=== PATIENT | male | born 1945 | race Caucasian/White ===

== ENCOUNTER → 2025-08-23 | Day surgery (SDC) | payer MEDICARE ==
[~2025-08-23] MED LIST: ACETAMINOPHEN 1000 MG/100 ML 100 ML IV ONE; ADVAIR 100-501 EACH INH; ASPIRIN EC81 MG PO; BOTULINUM TOXIN TYPE A 100 UNIT VIAL IM ONE; CEFTRIAXONE 1 GM VIAL ONE; CENTRUM ADULTS1 EACH PO; CLOPIDOGREL75 MG PO; COREG12.5 MG PO; CRESTOR40 MG PO; ISOSORBIDE MONO30 MG PO; KEPPRA750 MG PO; KETOROLAC TROMETHAMINE 30 MG/ML VIAL ONE; LIDOCAINE HCL 2% LOCAL INJ 5 ML SDV VIAL INJ ONE; NITROGLYCERIN0.4 MG SL; ONDANSETRON HCL INJ 2MG/ML 2ML 2 MG/ML VIAL ONE; PREVACID15 M1 PO; PREVAGEN PO; PREVEGEN PO; PROPOFOL IV EMULSION 10 MG/ML 20 ML VIAL ONE; RANOLAZINE ER1000 MG PO; SEVOFLURANE INHAL SOLN 250 ML PEN BTL ONE; SODIUM CHLORIDE 0.9% 1000ML 1,000 ML ONE; VENTOLIN HFA18 GM INH; ZESTRIL2.5 MG PO; ZETIA10 MG PO
[2025-08-23 11:07] LABS: EST GLOMERULAR FILTRATION RATE 87.0 ML/MIN (>=60)
[2025-08-23] MEDS: PHENAZOPYRIDINE HCL 100 MG TAB ONE (13:25)
[2025-08-23 14:00] VITALS: BP 161/91; PULSE 65; RESP 15; O2SAT 99
== END | disposition home or self-care (01) ==
LOC: OR 09:43
PROVIDERS: ATTEND Urology
DX: N40.1 Benign prostatic hyperplasia with lower urinary tract symptoms (principal); N39.41 Urge incontinence; R35.0 Frequency of micturition; R31.29 Other microscopic hematuria; I11.9 Hypertensive heart disease without heart failure; I51.9 Heart disease, unspecified; I25.10 Atherosclerotic heart disease of native coronary artery without angina pectoris; I25.2 Old myocardial infarction; E78.5 Hyperlipidemia, unspecified; G47.33 Obstructive sleep apnea (adult) (pediatric); J45.909 Unspecified asthma, uncomplicated; Z95.5 Presence of coronary angioplasty implant and graft; Z95.1 Presence of aortocoronary bypass graft; Z79.02 Long term (current) use of antithrombotics/antiplatelets; Z79.82 Long term (current) use of aspirin; Z79.899 Other long term (current) drug therapy; Z87.442 Personal history of urinary calculi; Z95.810 Presence of automatic (implantable) cardiac defibrillator; Z79.51 Long term (current) use of inhaled steroids; Z01.812 Encounter for preprocedural laboratory examination
CPT/HCPCS: 36415; 52005; 52287; 74420; 80048; 87086; J0131; J0587; J0696; J1885; J2003; J2405; J2704; J7030